=== PATIENT | male | born 1970 | race African-American/Black ===

== ENCOUNTER 2017-03-17 19:31 | Emergency (ER) | payer OTHER, BC ==
[2017-03-17 19:35] VITALS: BP 128/77; PULSE 85; TEMP 98; BMI 23.1
[2017-03-17] MEDS ORDERED: IBUPROFEN 600 MG TABLET (FP) PO ONE ×2 (20:48→20:49)
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
== END 2017-03-17 21:21 | disposition home or self-care (01) ==
LOC: JERFT 19:31
DX: M54.5 Low back pain (principal); V49.49XA Driver injured in collision with other motor vehicles in traffic accident, initial encounter; Y92.488 Other paved roadways as the place of occurrence of the external cause; Y99.8 Other external cause status
CPT/HCPCS: 99281-25